=== PATIENT | male | born 1980 | race Caucasian/White ===

== ENCOUNTER 2023-06-19 11:10 | Emergency (ER) | payer OTHER, MEDICARE ==
[~2023-06-19] VITALS: Ht 190.5 cm; Wt 124.7 kg
[2023-06-19 11:25] VITALS: BP_SYST 130
[2023-06-19] MEDS ORDERED: EPINEPHRINE-PF 1:1000 1 MG/ML AMPUL/VIAL ONE (11:25)
[2023-06-19] MEDS ORDERED: FAMOTIDINE. 20 MG/2 ML VIAL IV ONE ×2 (11:30→11:32)
[2023-06-19] MEDS ORDERED: methylPREDNISolone SOD SUCC 125 MG/2 ML VIAL IV ONE (11:30)
[2023-06-19] MEDS ORDERED: diphenhydrAMINE 50 MG/1 ML VIAL IV ONE (11:30)
[2023-06-19] MEDS ORDERED: EPINEPHRINE 1 MG/1 ML 30 ML VIAL SQ ONE (11:30)
[2023-06-19] MEDS ORDERED: diphenhydrAMINE 50 MG/1 ML VIAL ONE (11:31)
[2023-06-19] MEDS ORDERED: methylPREDNISolone SOD SUCC 125 MG/2 ML VIAL ONE (11:32)
[2023-06-19] MEDS ORDERED: VALS160T2 PO (11:33)
[2023-06-19] MEDS ORDERED: VILA40TA PO (11:33)
[2023-06-19] MEDS ORDERED: COLE1TAB2 PO (11:33)
[2023-06-19] MEDS ORDERED: FAMO40TA7 PO (13:31)
[2023-06-19] MEDS ORDERED: LORA10TA62 PO (13:31)
[2023-06-19] MEDS ORDERED: PRED50TA PO (13:31)
[2023-06-19] MEDS ORDERED: CETI-90 PO (13:31)
[2023-06-19 14:10] VITALS: BP_DIAS 118; O2SAT 99
== END 2023-06-19 14:11 | disposition home or self-care (01) ==
LOC: ER 11:10
DX: T78.2XXA Anaphylactic shock, unspecified, initial encounter (principal); Z88.1 Allergy status to other antibiotic agents; Z88.8 Allergy status to other drugs, medicaments and biological substances; Z79.899 Other long term (current) drug therapy
CPT/HCPCS: 99284; 96374; 96375; 96372; J1200; J0171 ×2; J3490; J2930; A4606; A4663